=== PATIENT | male | born 1975 | race African-American/Black ===

== ENCOUNTER 2017-02-06 07:20 | Emergency (ER) | payer OTHER ==
[~2017-02-06] VITALS: Ht 180.3 cm; Wt 111.4 kg
[2017-02-06 07:24] VITALS: BP 125/68
[2017-02-06] MEDS ORDERED: ATOR1TAB19 PO (07:30)
--- NOTE | 2017-02-06 08:30 | REP ---
Clinical: Trauma. Technique: AP, lateral, bilateral oblique views right second digit. Findings: The osseous structures and joint spaces are intact and normal. There is no evidence for acute fracture or dislocation. Surrounding soft tissues are unremarkable. No subcutaneous emphysema or radiodense foreign body. Impression: Normal examination. No acute fracture or dislocation. Signed by Rosas Salazar MD 02/06/2017 08:21 A
[2017-02-06] MEDS ORDERED: IBUP-1022 PO (08:35)
[2017-02-06] MEDS ORDERED: IBUPROFEN 600 MG TAB PO ONE (08:45)
== END 2017-02-06 08:53 | disposition home or self-care (01) ==
LOC: M ED 07:53
DX: S63.610A Unspecified sprain of right index finger, initial encounter (principal); X58.XXXA Exposure to other specified factors, initial encounter; Y92.89 Other specified places as the place of occurrence of the external cause; Y93.89 Activity, other specified; Y99.8 Other external cause status; I10 Essential (primary) hypertension; Z79.899 Other long term (current) drug therapy

== ENCOUNTER → 2018-12-02 | Outpatient (CLI) | payer OTHER ==
[~2018-12-02] MED LIST: ATOR1TAB19 PO; IBUP-1022 PO
--- NOTE | 2018-12-02 10:06 | REP ---
MRI LUMBAR SPINE WITHOUT AND WITH CONTRAST: HISTORY: Back pain. CONTRAST: ProHance 20 mL. Decreased signal intensity on T2-weighted images is present in the L5-S1 intervertebral disc. The disc is decreased in height. These findings are consistent with disc degeneration. A diffuse disc bulge is present at the L1-2 level. There is minimal compression of the thecal sac. The L1 nerves exit the neural foramina without compression. A diffuse disc bulge is present at the L2-3 level. There is an increase in the amount of epidural fat. There is mild compression of the thecal sac. There is hypertrophy of the ligamenta flava and posterior articulating facets. The L2 nerves exit the neural foramina without compression. A diffuse disc bulge is present at the L3-4 level. There is an increase in the amount of epidural fat. There is moderate compression of the thecal sac. There is hypertrophy of the ligamenta flava and posterior articulating facets. The L3 nerves exit the neural foramina without compression. A diffuse disc bulge is present at the L4-5 level. There is an increase in the amount of epidural fat. There is moderate compression of the thecal sac. There is hypertrophy of the ligamenta flava and posterior articulating facets. The L4 nerves exit the neural foramina without compression. A diffuse disc bulge is present at the L5-S1 level. There is an increase in the amount of epidural fat. There is moderate compression of the thecal sac. There is hypertrophy of the posterior articulating facets. The L5 nerves exit the neural foramina without compression. The conus medullaris is normal in appearance terminating at the level of the L1-2 intervertebral disc. Normal signal intensity is present in the lumbar vertebral bodies. There is no definite soft tissue abnormality. IMPRESSION: 1. Diffuse disc bulge at the L1-2 level with minimal thecal sac compression. 2. Diffuse disc bulge and epidural lipomatosis at the L2-3 level with mild thecal sac compression. 3. Diffuse disc bulge and epidural lipomatosis at the L3-4 through L5-S1 levels with moderate thecal sac compression. Electronically Signed by Celio Huynh MD 12/02/2018 10:20 A
== END ==
LOC: M PLARAD 08:20
PROVIDERS: ATTEND Family Medicine
DX: M51.26 Other intervertebral disc displacement, lumbar region (principal); M51.27 Other intervertebral disc displacement, lumbosacral region

== ENCOUNTER → 2019-01-24 | Outpatient (CLI) | payer OTHER ==
--- NOTE | 2019-02-01 09:01 | SLEEPHOME ---
DATE OF PROCEDURE: 01/24/2019 ORDERED BY: Jayden Baldwin MD Diagnostic home sleep testing was performed due to concern for the obstructive sleep apnea syndrome. For testing a nocturnal T3 respiratory monitoring device was used. Continuous record was made pulse, oxygen saturation, airflow, chest and abdominal strain, and body position. 10 hours and 59 minutes of data were reviewed. There were 4 hours and 44 minutes marked as time in bed. During the interval marked time in bed, there were 102 respiratory events identified of 10 seconds in duration or greater for a respiratory event index of 21.5. The events were primarily obstructive. Baseline pulse rate 61 beats per minute. Pulse rate ranged 47-95. Baseline saturation was 92%, saturations fell to 77%, and of the oxygen desaturation index was 20.2. Testing was performed in both the supine and nonsupine positions. IMPRESSION: Abnormal home sleep testing with repetitive respiratory events and oxygen desaturation to 77% with a respiratory event index of 21.5 is consistent with the obstructive sleep apnea syndrome. RECOMMENDATIONS: The patient should be encouraged to undergo formal sleep evaluation with consideration for in-laboratory pressure titration.
== END ==
LOC: M SLEEP HO 07:43
PROVIDERS: ATTEND Internal Medicine Cardiovascular Disease
DX: R06.83 Snoring (principal)

== ENCOUNTER 2024-03-10 22:55 | Emergency (ER) | payer OTHER ==
[~2024-03-10] VITALS: Ht 180.3 cm; Wt 105.4 kg
[2024-03-10 22:55] VITALS: BP 108/64; TEMP 97.1; O2SAT 96
[2024-03-11] MEDS ORDERED: LISI10TA22 PO (08:57)
[2024-03-11] MEDS ORDERED: BENA25CA4 PO (09:10)
[2024-03-11] MEDS ORDERED: IBUP80TA PO (11:21)
[2024-03-11] MEDS ORDERED: AMLO1TAB25 PO (11:21)
[2024-03-11] MEDS ORDERED: HYDR-3713 PO (11:21)
[2024-03-11] MEDS ORDERED: REPA140I2 SQ (11:34)
== END 2024-03-11 03:23 | disposition left against medical advice (07) ==
LOC: M ED 22:55
DX: Z53.21 Procedure and treatment not carried out due to patient leaving prior to being seen by health care provider (principal)

== ENCOUNTER 2024-03-11 08:44 | Emergency (ER) | payer OTHER ==
[~2024-03-11] VITALS: Ht 180.3 cm; Wt 104.0 kg
[2024-03-11] MEDS ORDERED: LISI10TA22 PO (08:57)
[2024-03-11] MEDS ORDERED: BENA25CA4 PO (09:10)
[2024-03-11] MEDS: dexAMETHasone 20MG/5ML VIAL IV ONE (09:28)
[2024-03-11] MEDS: FAMOTIDINE 20MG/2ML VIAL IVP ONE (09:28)
[2024-03-11 10:50] VITALS: BP 125/73; TEMP 98.2; O2SAT 97
[2024-03-11 11:15] VITALS: BP 140/83; TEMP 98.3; O2SAT 97
[2024-03-11] MEDS ORDERED: AMLO1TAB25 PO (11:21)
[2024-03-11] MEDS ORDERED: IBUP80TA PO (11:21)
[2024-03-11] MEDS ORDERED: HYDR-3713 PO (11:21)
[2024-03-11] MEDS ORDERED: REPA140I2 SQ (11:34)
[2024-03-11] MEDS ORDERED: HOME MED LIST COMPLETE! XX SCH (11:35)
[2024-03-11 12:00] VITALS: BP 129/82; TEMP 98.7; O2SAT 97
[2024-03-11 15:45] VITALS: BP 140/73; O2SAT 97
[2024-03-11 15:54] VITALS: TEMP 98.9
== END 2024-03-11 16:00 | disposition home or self-care (01) ==
LOC: M ED 08:44 → EDBD 08:44 → M ED 16:00
DX: R22.0 Localized swelling, mass and lump, head (principal); T46.4X5A Adverse effect of angiotensin-converting-enzyme inhibitors, initial encounter; I10 Essential (primary) hypertension; E78.5 Hyperlipidemia, unspecified; F10.10 Alcohol abuse, uncomplicated; Z88.8 Allergy status to other drugs, medicaments and biological substances; Z79.1 Long term (current) use of non-steroidal anti-inflammatories (NSAID); Z79.899 Other long term (current) drug therapy
CPT/HCPCS: 36430; 86850; 86900; 86901; 86927; 96374; 99285; J1100; S0028

== ENCOUNTER 2024-04-30 08:27 | Emergency (ER) | payer OTHER ==
[~2024-04-30] VITALS: Ht 182.9 cm; Wt 103.0 kg
[~2024-04-30 08:27] MED LIST changes: +AMLO1TAB25 PO; +BENA25CA4 PO; +HYDR-3713 PO; +IBUP80TA PO; +LISI10TA22 PO; +REPA140I2 SQ
[2024-04-30 08:59] VITALS: BP 172/98; TEMP 97.8; O2SAT 97
[2024-04-30] MEDS ORDERED: ISOVUE-370 76% 100ML VIAL As Ordered ONE (09:03)
[2024-04-30 09:08] LABS: BASO % 1.2 % (0.0-1.0); EOS % 1.2 % (0.0-3.0); HEMATOCRIT 42.5 % (42.0-52.0); HEMOGLOBIN 14.4 g/dl (13.5-17.5); LYMPH # 1.5 10^3/uL (1.5-5.0); LYMPH % 45.8 % (24.0-44.0); MEAN CORPUSCULAR HEMOGLOBIN 31.9 pg (27.0-33.0); MEAN CORPUSCULAR HGB CONC 33.9 g/dl (32.0-36.5); MEAN CORPUSCULAR VOLUME 94.2 fl (80.0-96.0); MONO # 0.6 10^3/uL (0.0-0.8); MONO % 19.4 % (2.0-8.0); NEUTROPHILS % 31.2 % (36.0-66.0); PLATELET COUNT, AUTOMATED 237 10^3/uL (150-450); RED BLOOD COUNT 4.51 10^6/uL (4.30-6.10); WHITE BLOOD COUNT 3.3 10^3/uL (4.0-10.0)
[2024-04-30 09:15] VITALS: BP 172/98; TEMP 97.8; O2SAT 99
[2024-04-30 09:19] LABS: INR 1.02; PARTIAL THROMBOPLASTIN TIME 24.5 SECONDS (24.8-34.2); PROTHROMBIN TIME 13.1 SECONDS (12.5-14.5)
[2024-04-30 09:30] LABS: BLOOD UREA NITROGEN 8 MG/DL (9-23); CALCIUM LEVEL 9.2 MG/DL (8.5-10.1); CARBON DIOXIDE LEVEL 28 MMOL/L (20-31); CHLORIDE LEVEL 102 MMOL/L (98-107); CREATININE FOR GFR 0.99 MG/DL (0.70-1.30); GLOMERULAR FILTRATION RATE > 60.0 (>60); GLUCOSE, FASTING 127 MG/DL (60-100); POTASSIUM SERUM 3.1 MMOL/L (3.5-5.1); SODIUM LEVEL 137 MMOL/L (136-145)
[2024-04-30] MEDS: POTASSIUM CHLORIDE 10MEQ SR TABLET PO ONE (09:39)
[2024-04-30 10:33] VITALS: BP 172/98; TEMP 97.8; O2SAT 98
[2024-04-30] MEDS: LORazepam 2 MG/ML 1ML VIAL IV STA (11:54)
[2024-04-30 13:31] VITALS: BP 128/88; TEMP 97.8; O2SAT 97
[2024-04-30] MEDS ORDERED: ASPI81CH33 PO (13:37)
== END 2024-04-30 14:07 | disposition left against medical advice (07) ==
LOC: M ED 08:27
DX: G45.9 Transient cerebral ischemic attack, unspecified (principal); I67.9 Cerebrovascular disease, unspecified; I25.2 Old myocardial infarction; I45.81 Long QT syndrome; I10 Essential (primary) hypertension; E78.5 Hyperlipidemia, unspecified; F10.10 Alcohol abuse, uncomplicated; Z88.8 Allergy status to other drugs, medicaments and biological substances; Z79.1 Long term (current) use of non-steroidal anti-inflammatories (NSAID); Z79.899 Other long term (current) drug therapy; Z53.9 Procedure and treatment not carried out, unspecified reason
CPT/HCPCS: 70450; 70496; 70498; 70551; 71045; 80047; 80048; 85025; 85610; 85730; 86850; 86900; 86901; 93005; 93041; 94760; 96374; 99285; J2060; Q9967

== ENCOUNTER 2024-06-05 18:31 | Observation (INO) | payer OTHER ==
[~2024-06-05] VITALS: Ht 180.3 cm; Wt 105.9 kg
[~2024-06-05 18:31] MED LIST changes: +ASPI81CH33 PO
[2024-06-05 19:59] LABS: BASO % 1.2 % (0.0-1.0); EOS % 0.9 % (0.0-3.0); HEMATOCRIT 39.1 % (42.0-52.0); HEMOGLOBIN 13.2 g/dl (13.5-17.5); LYMPH # 1.2 10^3/uL (1.5-5.0); MEAN CORPUSCULAR HEMOGLOBIN 32.4 pg (27.0-33.0); MEAN CORPUSCULAR HGB CONC 33.8 g/dl (32.0-36.5); MEAN CORPUSCULAR VOLUME 95.8 fl (80.0-96.0); MONO # 0.5 10^3/uL (0.0-0.8); MONO % 14.6 % (2.0-8.0); NEUTROPHILS # 1.6 10^3/uL (1.5-8.5); PLATELET COUNT, AUTOMATED 234 10^3/uL (150-450); RED BLOOD COUNT 4.08 10^6/uL (4.30-6.10); WHITE BLOOD COUNT 3.3 10^3/uL (4.0-10.0)
[2024-06-05 20:26] LABS: CK-MB VALUE MASS 1.8 NG/ML (<3.6)
[2024-06-05 20:28] LABS: ALBUMIN 4.1 G/DL (3.2-5.2); ALKALINE PHOSPHATASE 67 U/L (40-129); ALT/SGPT 32 U/L (7.0-40); AST/SGOT 58 U/L (<34); BLOOD UREA NITROGEN 7 MG/DL (9-23); CALCIUM LEVEL 9.4 MG/DL (8.5-10.1); CARBON DIOXIDE LEVEL 23 MMOL/L (20-31); CHLORIDE LEVEL 103 MMOL/L (98-107); CREATININE FOR GFR 0.81 MG/DL (0.70-1.30); GLOMERULAR FILTRATION RATE > 60.0 (>60); GLUCOSE, FASTING 103 MG/DL (60-100); POTASSIUM SERUM 3.6 MMOL/L (3.5-5.1); SODIUM LEVEL 139 MMOL/L (136-145); TOTAL PROTEIN 7.8 G/DL (5.7-8.2)
[2024-06-05 20:29] LABS: MB/CK RELATIVE INDEX 0.51 (< OR =4)
[2024-06-05] MEDS ORDERED: AMLO2.5T3 PO (20:30)
[2024-06-05] MEDS ORDERED: FOLI1TAB11 PO (20:30)
[2024-06-05] MEDS: NITROGLYCERIN 2% OINT 1 GM *U/D* PKT TOP ONE (22:30)
[2024-06-05] MEDS ORDERED: ISOVUE-370 76% 100ML VIAL As Ordered ONE (23:15)
[2024-06-05] MEDS: LABETALOL 100MG/20ML VIAL IV STA (23:18)
[2024-06-06] MEDS: LORazepam 2 MG/ML 1ML VIAL IV STA (00:05)
[2024-06-06] MEDS: MULTIVITAMINS/MINERALS THERAP 1 TAB PO SCH ×2 (01:28→08:12)
[2024-06-06] MEDS: THIAMINE 100 MG TAB PO SCH ×2 (01:29→08:12)
[2024-06-06] MEDS: FOLIC ACID 1MG TAB PO SCH ×2 (01:29→08:12)
[2024-06-06] MEDS ORDERED: CLOP75TA2 PO (03:11)
[2024-06-06] MEDS ORDERED: SILD50TA2 PO (03:11)
[2024-06-06] MEDS ORDERED: HYDR12CA PO (03:11)
[2024-06-06] MEDS ORDERED: VITA100T28 PO (03:11)
[2024-06-06] MEDS ORDERED: EZET10TA21 PO (03:11)
[2024-06-06] MEDS ORDERED: ATOR80TA59 PO (03:11)
[2024-06-06] MEDS ORDERED: ASPI81TA26 PO (03:11)
[2024-06-06] MEDS ORDERED: HOME MED LIST COMPLETE! XX SCH (03:15)
[2024-06-06 03:24] LABS: VENOUS BASE EXCESS 0.4 (-2.0-2.0); VENOUS HCO3 24.2 MMOL/L (23.0-27.0); VENOUS O2 SATURATION 97.9 % (60.0-80.0); VENOUS PARTIAL PRESSURE CO2 36.4 mmHg (38.0-50.0); VENOUS PARTIAL PRESSURE O2 103.3 mmHg (30.0-50.0); VENOUS PH 7.441 UNITS (7.330-7.430); VENOUS STANDARD HCO3 24.9 MMOL/L; VENOUS TOTAL CO2 25.3 MMOL/L (24.0-28.0)
[2024-06-06] MEDS ORDERED: MAALOX 30 ML SUSP *UDC PO PRN (03:50)
[2024-06-06] MEDS ORDERED: LORazepam 2 MG TAB PO PRN ×2 (03:50)
[2024-06-06] MEDS ORDERED: ACETAMINOPHEN 325 MG TAB PO PRN (03:50)
[2024-06-06] MEDS ORDERED: MOM 30ML SUSPENSION UDC PO PRN (03:50)
[2024-06-06 04:01] LABS: ETHYL ALCOHOL (ETHANOL) < 0.003 % (0.000-0.010)
[2024-06-06 04:03] LABS: CHOLESTEROL LEVEL 294 MG/DL (<200); CHOLESTEROL RISK RATIO 4.86 (<5); HDL CHOLESTEROL 60.4 MG/DL (>40); LDL CHOLESTEROL 211.8 MG/DL (<100); NON-HDL-C 233.6 MG/DL; TRIGLYCERIDES LEVEL 109 MG/DL (<150)
[2024-06-06 04:05] LABS: FREE THYROXINE INDEX 1.9 % (1.4-3.8); THYROID STIMULATING HORMONE 1.706 uIU/ML (0.55-4.78); THYROXINE (T4) 5.2 UG/DL (4.5-10.9)
[2024-06-06] MEDS: MAGNESIUM OXIDE 400MG TAB (MAG-OX) PO ONE (05:01)
[2024-06-06] MEDS: OXAZEPAM 15MG CAP PO SCH (05:02)
[2024-06-06] MEDS: amLODIPine 5 MG TAB PO SCH (05:03)
[2024-06-06] MEDS: MAG SULF 1GM/100ML (MAG RUN) 1 GM in IV 1 EA IV SCH (05:03)
[2024-06-06] MEDS: CHLORTHALIDONE 12.5MG PER 1/2 TABLET PO SCH (06:08)
[2024-06-06 08:02] LABS: CK-MB VALUE MASS 1.6 NG/ML (<3.6)
[2024-06-06 08:03] LABS: CPK CREATINE PHOSPHOKINASE 271 U/L (46-171); MB/CK RELATIVE INDEX 0.59 (< OR =4)
[2024-06-06] MEDS: ASPIRIN 81MG ENTERIC TABLET PO SCH (08:12)
[2024-06-06] MEDS: ENOXAPARIN 40MG/0.4ML SYRINGE (J1650 PER 10MG) SC SCH (08:12)
[2024-06-06] MEDS: CLOPIDOGREL 75 MG TAB PO SCH (08:12)
[2024-06-06 08:13] VITALS: BP 148/86
[2024-06-06] MEDS: ATORVASTATIN 20 MG TAB PO SCH (08:13)
[2024-06-06] MEDS: DOCUSATE SODIUM 100MG CAPSULE PO SCH (08:13)
[2024-06-06] MEDS: amLODIPine 5 MG TAB PO ONE (08:13)
[2024-06-06 10:28] LABS: HEMATOCRIT 38.5 % (42.0-52.0); HEMOGLOBIN 12.7 g/dl (13.5-17.5); MEAN CORPUSCULAR HEMOGLOBIN 32.2 pg (27.0-33.0); MEAN CORPUSCULAR VOLUME 97.5 fl (80.0-96.0); PLATELET COUNT, AUTOMATED 229 10^3/uL (150-450); RED BLOOD COUNT 3.95 10^6/uL (4.30-6.10); WHITE BLOOD COUNT 3.3 10^3/uL (4.0-10.0)
[2024-06-06] MEDS: EZETIMIBE 10MG TABLET (ZETIA) PO SCH (10:29)
[2024-06-06 10:39] LABS: ALBUMIN 3.8 G/DL (3.2-5.2); ALKALINE PHOSPHATASE 63 U/L (40-129); ALT/SGPT 29 U/L (7.0-40); AST/SGOT 45 U/L (<34); BILIRUBIN,TOTAL 1.5 MG/DL (0.3-1.2); BLOOD UREA NITROGEN 8 MG/DL (9-23); CALCIUM LEVEL 9.4 MG/DL (8.5-10.1); CARBON DIOXIDE LEVEL 26 MMOL/L (20-31); CHLORIDE LEVEL 103 MMOL/L (98-107); CREATININE FOR GFR 0.87 MG/DL (0.70-1.30); GLOMERULAR FILTRATION RATE > 60.0 (>60); GLUCOSE, FASTING 123 MG/DL (60-100); POTASSIUM SERUM 3.3 MMOL/L (3.5-5.1); SODIUM LEVEL 138 MMOL/L (136-145); TOTAL PROTEIN 7.2 G/DL (5.7-8.2)
[2024-06-06 14:54] LABS: CK-MB VALUE MASS 1.4 NG/ML (<3.6)
[2024-06-06 14:55] LABS: MB/CK RELATIVE INDEX 0.55 (< OR =4)
[2024-06-06] MEDS ORDERED: CHLO125TA PO (15:16)
[2024-06-06] MEDS ORDERED: MAGN400T2 PO (15:16)
[2024-06-06] MEDS ORDERED: AMLO1TAB24 PO (15:16)
[2024-06-06 15:51] VITALS: BP 146/92; TEMP 98.3; O2SAT 97
[2024-06-06] MEDS ORDERED: OXAZEPAM 15MG CAP PO SCH (16:00)
[2024-06-06 19:16] LABS: AMPHETAMINES LEVEL URINE NEGATIVE (NEGATIVE); BARBITURATES URINE NEGATIVE (NEGATIVE); BENZODIAZEPINES URINE NEGATIVE (NEGATIVE); CANNABINOIDS URINE NEGATIVE (NEGATIVE); COCAINE METABOLITE URINE NEGATIVE (NEGATIVE); METHADONE URINE NEGATIVE (NEGATIVE); OPIATES URINE NEGATIVE (NEGATIVE); PHENCYCLIDINE URINE NEGATIVE (NEGATIVE)
[2024-06-06] MEDS ORDERED: MAGNESIUM OXIDE 400MG TAB (MAG-OX) PO SCH ×2 (21:00)
[2024-06-07] MEDS ORDERED: OXAZEPAM 15MG CAP PO SCH (06:00)
== END 2024-06-06 15:51 | disposition home or self-care (01) ==
LOC: M ED 18:31 → M ED INP 18:32
PROVIDERS: ADMIT Student in an Organized Health Care Education/Training Program; ATTEND Student in an Organized Health Care Education/Training Program
DX: I16.0 Hypertensive urgency (principal); R00.2 Palpitations; F10.20 Alcohol dependence, uncomplicated; E83.42 Hypomagnesemia; E78.5 Hyperlipidemia, unspecified; R79.89 Other specified abnormal findings of blood chemistry; M79.602 Pain in left arm; I65.23 Occlusion and stenosis of bilateral carotid arteries; M50.30 Other cervical disc degeneration, unspecified cervical region; M47.812 Spondylosis without myelopathy or radiculopathy, cervical region; Z90.49 Acquired absence of other specified parts of digestive tract; Z98.890 Other specified postprocedural states; Z79.82 Long term (current) use of aspirin; Z79.02 Long term (current) use of antithrombotics/antiplatelets; Z88.8 Allergy status to other drugs, medicaments and biological substances
CPT/HCPCS: 36415; 70450; 70496; 70498; 71045; 72125; 76775; 80053; 80061; 80307; 81001; 82077; 82550; 82553; 82803; 83735; 84436; 84443; 84479; 84484; 85025; 85027; 93005; 93306; 93975; 96365; 96372; 96375; 99285; J1650; J1920; J2060; J3475; Q9967

== ENCOUNTER 2025-05-23 06:43 | Observation (INO) | payer OTHER ==
[2025-05-23] VITALS (12 sets, daily range): BP systolic 144–200; BP diastolic 90–120; TEMP 97.8–98.7; O2SAT 95–98
[~2025-05-23] VITALS: Ht 180.3 cm; Wt 110.0 kg
[~2025-05-23 06:43] MED LIST changes: +AMLO1TAB24 PO; +AMLO2.5T3 PO; +ASPI81TA26 PO; +ATOR80TA59 PO; +CHLO125TA PO; +CLOP75TA2 PO; +EZET10TA57 PO; +FOLI1TAB11 PO; +HYDR12.510 PO; -IBUP-1022 PO; +IBUP600T42 PO; +MAGN400T2 PO; +SILD50TA2 PO; +VITA100T28 PO
[2025-05-23] MEDS ORDERED: ISOVUE-370 76% 100 ML VIAL As Ordered ONE (07:30)
[2025-05-23 07:45] LABS: INR 0.92
[2025-05-23 07:51] LABS: CK-MB VALUE MASS 4.1 NG/ML (<3.6); PLATELET COUNT, AUTOMATED 296 10^3/uL (150-450)
[2025-05-23 07:52] LABS: CPK CREATINE PHOSPHOKINASE 409 U/L (46-171); MB/CK RELATIVE INDEX 1.00 (< OR =4)
[2025-05-23 07:55] LABS: ETHYL ALCOHOL (ETHANOL) 0.022 % (0.000-0.010); MAGNESIUM LEVEL 1.6 MG/DL (1.8-2.4)
[2025-05-23 08:30] LABS: ALT/SGPT 46 U/L (7.0-40); AST/SGOT 61 U/L (<34); CALCIUM LEVEL 9.6 MG/DL (8.5-10.1); CARBON DIOXIDE LEVEL 22 MMOL/L (20-31); CHLORIDE LEVEL 103 MMOL/L (98-107); CREATININE FOR GFR 0.83 MG/DL (0.70-1.30); GLOMERULAR FILTRATION RATE > 90.0 (>56); POTASSIUM SERUM 4.1 MMOL/L (3.5-5.1); SODIUM LEVEL 142 MMOL/L (136-145)
[2025-05-23 08:34] LABS: ATYPICAL LYMPH 8 % (0-5); BASOPHILS 3 % (0-1); EOSINOPHILS 2 % (0-3); LYMPHOCYTES 36 % (16-44); MONOCYTES 11 % (0-5); NEUTROPHILS 39 % (28-66); PLATELET ESTIMATE NORMAL (NORMAL)
[2025-05-23 08:40] LABS: APPEARANCE, URINE CLEAR (CLEAR); BACTERIA, URINE AUTO NEGATIVE (NEGATIVE); BILIRUBIN, URINE AUTO NEGATIVE (NEGATIVE); BLOOD, URINE BLOOD NEGATIVE (NEGATIVE); GLUCOSE, URINE (UA) AUTO NEGATIVE (NEGATIVE); KETONE, URINE AUTO TRACE mg/dL (NEGATIVE); LEUKOCYTE ESTERASE, URINE AUTO NEGATIVE (NEGATIVE); NITRITE, URINE AUTO NEGATIVE (NEGATIVE); PROTEIN, URINE AUTO NEGATIVE (NEGATIVE); RBC, URINE AUTO 0 /HPF (0-3); SPECIFIC GRAVITY URINE AUTO 1.042 (1.002-1.035); SQUAMOUS EPITHELIAL CELL UR AU 0 /HPF (0-6); UROBILINOGEN, URINE AUTO 0.2 mg/dL (0.0-2.0); WBC, URINE AUTO 0 /HPF (0-3)
[2025-05-23 09:09] LABS: AMPHETAMINES LEVEL URINE NEGATIVE (NEGATIVE); BARBITURATES URINE NEGATIVE (NEGATIVE); BENZODIAZEPINES URINE NEGATIVE (NEGATIVE); COCAINE METABOLITE URINE NEGATIVE (NEGATIVE); METHADONE URINE NEGATIVE (NEGATIVE)
[2025-05-23 09:10] LABS: CANNABINOIDS URINE NEGATIVE (NEGATIVE); OPIATES URINE NEGATIVE (NEGATIVE); PHENCYCLIDINE URINE NEGATIVE (NEGATIVE)
[2025-05-23] MEDS: hydrALAZINE 20 MG/ML 1 ML VIAL IV STA (09:11)
[2025-05-23 09:37] LABS: CK-MB VALUE MASS 3.6 NG/ML (<3.6)
[2025-05-23 09:39] LABS: CPK CREATINE PHOSPHOKINASE 378.0 U/L (46-171); MB/CK RELATIVE INDEX 0.95 (< OR =4)
[2025-05-23] MEDS ORDERED: CARV3.12 PO (13:10)
[2025-05-23] MEDS ORDERED: HOME MED LIST COMPLETE! XX SCH (13:15)
[2025-05-23] MEDS ORDERED: ACETAMINOPHEN 325 MG TAB PO PRN (13:35)
[2025-05-23] MEDS: THIAMINE 100 MG TAB PO SCH (14:19)
[2025-05-23] MEDS: MULTIVITAMINS/MINERALS THERAP 1 TAB PO SCH (14:20)
[2025-05-23] MEDS: ATORVASTATIN 20 MG TAB PO SCH (14:20)
[2025-05-23] MEDS: MAG SULF 1GM/100ML (MAG RUN) 1 GM in IV 1 EA IV SCH (14:21)
[2025-05-23] MEDS: FOLIC ACID 1 MG TAB PO SCH (14:21)
[2025-05-23 14:31] LABS: PLATELET COUNT, AUTOMATED 276 10^3/uL (150-450)
[2025-05-23 14:53] LABS: INR 0.95
[2025-05-23 15:00] LABS: ALT/SGPT 48 U/L (7.0-40); AST/SGOT 65 U/L (<34); CALCIUM LEVEL 9.8 MG/DL (8.5-10.1); CARBON DIOXIDE LEVEL 25 MMOL/L (20-31); CHLORIDE LEVEL 100 MMOL/L (98-107); CREATININE FOR GFR 0.82 MG/DL (0.70-1.30); GLOMERULAR FILTRATION RATE > 90.0 (>56); POTASSIUM SERUM 3.8 MMOL/L (3.5-5.1); SODIUM LEVEL 140 MMOL/L (136-145)
[2025-05-23] MEDS: EZETIMIBE 10 MG TABLET PO SCH (15:07)
[2025-05-23] MEDS: ENOXAPARIN 40 MG/0.4 ML SYRINGE (J1650 PER 10MG) SC SCH (15:07)
[2025-05-23] MEDS: MAGNESIUM OXIDE 400 MG TAB PO SCH (20:31)
[2025-05-24 04:00] VITALS: BP 143/88; TEMP 97.2; O2SAT 98
[2025-05-24 06:05] VITALS: BP 143/88
[2025-05-24] MEDS ORDERED: MAGN400T33 PO (07:13)
[2025-05-24] MEDS: ASPIRIN 81 MG ENTERIC TABLET PO SCH (08:14)
[2025-05-24 08:15] VITALS: BP 154/93
[2025-05-24] MEDS: amLODIPine 5 MG TAB PO SCH (08:15)
== END 2025-05-24 10:40 | disposition home or self-care (01) ==
LOC: M ED 06:43 → M ED INP 13:33 → M MS4PR 14:43
PROVIDERS: ADMIT Internal Medicine; ATTEND Internal Medicine
DX: R25.1 Tremor, unspecified (principal); I16.0 Hypertensive urgency; R07.89 Other chest pain; Z91.148 Patient's other noncompliance with medication regimen for other reason; E83.42 Hypomagnesemia; F10.20 Alcohol dependence, uncomplicated; E78.5 Hyperlipidemia, unspecified; I65.21 Occlusion and stenosis of right carotid artery; M79.602 Pain in left arm; R53.1 Weakness; Z87.892 Personal history of anaphylaxis; Z79.899 Other long term (current) drug therapy; Z79.82 Long term (current) use of aspirin; Z88.8 Allergy status to other drugs, medicaments and biological substances
CPT/HCPCS: 36415; 70450; 70496; 70498; 70551; 71045; 80047; 80053; 80307; 81001; 82077; 82550; 82553; 83735; 84484; 85025; 85027; 85610; 85730; 86850; 86900; 86901; 93041; 94760; 96365; 96372; 96374; 96375; 99285; G0399; J0360; J1650; J2060; J3475; Q9967